=== PATIENT | female | born 1970 | race Caucasian/White ===

== ENCOUNTER 2016-09-01 02:03 | Emergency (ER) | payer OTHER ==
[~2016-09-01] VITALS: Ht 165.1 cm; Wt 73.0 kg
[2016-09-01 02:10] VITALS: Ht 165.1 cm; Wt 73.0 kg
--- NOTE | 2016-09-01 03:15 | ERD ---
ER Documentation Chief Complaint Date/Time DATE: 09/01/16 TIME: 03:15 Chief Complaint CWP since 1999 last night. takes clonazepam HPI Patient is a 46-year-old female who presents to the ED with left arm numbness and left leg numbness 2 days. She states that it came on suddenly. She states that she has anxiety and takes clonazepam for her symptoms. She is worried about what the numbness could be. She denies headache or dizziness. She denies cough, shortness of breath or difficulty breathing. She denies weakness or difficulty walking or speaking. She denies radiation of pain. Denies abdominal pain, nausea, vomiting or diarrhea. Patient states that she is anxious and has had a lot of stress. Denies recent travel or recent surgery. Denies leg pain or swelling. She states that the numbness comes and goes. Denies any triggering factor. ROS All systems reviewed and are negative except as per history of present illness. Medications Home Meds Active Scripts Naproxen* (Naprosyn*) 500 Mg Tablet, 500 MG PO BID Y for PAIN AND/OR INFLAMMATION, #30 TAB Prov:DAMEON JONES PA-C 09/01/16 Allergies Allergies: Coded Allergies: No Known Allergy (Unverified , 09/01/16) PMhx/Soc History of Surgery: No Hx Neurological Disorder: No Hx Respiratory Disorders: No Hx Cardiac Disorders: No Hx Alcohol Use: No Hx Substance Use: No Hx Tobacco Use: No Smoking Status: Never smoker FmHx Family History: No coronary disease, No diabetes, No other Physical Exam Vitals Vital Signs Date Time Temp Pulse Resp B/P Pulse Ox O2 Delivery O2 Flow Rate FiO2 09/01/16 02:10 99.5 114 20 117/77 98 Physical Exam GENERAL: Well-developed, well-nourished female. Appears in no acute distress. HEAD: Normocephalic, atraumatic. EYES: Pupils are equally reactive bilaterally. EOMs grossly intact. No conjunctival erythema. ENT: Moist mucous membranes. No uvula deviation. No kissing tonsils. No exudates. NECK: Supple. No lymphadenopathy or thyromegaly. No meningismus. negative kernig. negative brudinski. LUNG: Clear to auscultation bilaterally. No rhonchi, wheezing, rales or coarse breath sounds. HEART: Regular rate and rhythm. No murmurs, rubs or gallops. ABDOMEN: No scars, ecchymosis or rashes noted. Soft, nontender, and nondistended. Positive bowel sounds in all four quadrants. No rebound tenderness , no guarding. (-) McBurneys point tenderness. No CVA tenderness. BACK: No midline tenderness. Extremities: Equal pulses bilaterally. No peripheral clubbing, cyanosis or edema. No unilateral leg swelling. NEUROLOGIC: Alert and oriented. Moving all four extremities. 5/5 strength in all extremities. Normal speech. Steady gait. Cranial nerves II through XII intact. SKIN: Normal color. Warm and dry. No rashes or lesions. Capillary refill < 2 seconds Procedures/MDM ER COURSE: I kept the patient and/or family informed of laboratory and diagnostic imaging results throughout the emergency room course. EKG performed, read by Dr. Schwartz 116 bpm, sinus tachycardia normal axis, no acute ST segment changes, no T wave inversion [place] [id number] Radiology Main Line: [phone] DIAGNOSTIC IMAGING REPORT Patient: DEYSI HARVEY : 1970 Age: 46 Sex: F MR #: [id number] DOS: 09/01/16 0325 Ordering MD: DAMEON JONES PA-C Location: [facility] Room/Bed: PROCEDURE: CT Brain without contrast. CLINICAL INDICATION: Numbness, headache TECHNIQUE: A CT of the brain was performed utilizing axial imaging from the skull base through the vertex without IV contrast. Multiplanar reformatted images were made. Images were reviewed on a PACS workstation. The CTDIvol is 44.95 mGy and the DLP is 720.23 mGycm. One or more the following dose reduction techniques were utilized: Automated exposure control, adjustment of the mA/ or kV according to patient's size, or use of iterative reconstruction technique. COMPARISON: None FINDINGS: There is no intracranial hemorrhage, mass effect, or midline shift. No extra- axial fluid collection is seen. The ventricles and sulci are normal in size and configuration. The density of the brain is normal, and the river white matter differentiation appears well-preserved. The visualized paranasal sinuses and osseous structures are grossly unremarkable. IMPRESSION: 1. No evidence of acute intracranial pathology. 2. The brain is normal in appearance. RPTAT: HJES .Tereso Montalvo MD, MD Date Time Electronically viewed and signed by .Tereso Montalvo MD, MD on 09/01/2016 04:32 .S/ CC: DAMEON JONES PA-C [place] [id number] Radiology Main Line: [phone] DIAGNOSTIC IMAGING REPORT Patient: DEYSI HARVEY : 1970 Age: 46 Sex: F MR #: [id number] DOS: 09/01/16 0245 Ordering MD: DAMEON JONES PA-C Location: [facility] Room/Bed: PROCEDURE: XR Chest. CLINICAL INDICATION: Chest wall pain TECHNIQUE: Single frontal view of the chest was obtained COMPARISON: None FINDINGS: The heart and mediastinum are within normal limits. The lungs are clear. There is no pleural effusion or pneumothorax. ECG leads projected over the chest. IMPRESSION: No acute disease. RPTAT: HJES .Tereso Montalvo MD, MD Date Time Electronically viewed and signed by .Tereso Montalvo MD, MD on 09/01/2016 04:13 .S/ CC: DAMEON JONES PA-C MEDICAL DECISION MAKING: This is a 46-year-old female who presents with left arm numbness, left leg numbness and chest pressure 2 days. Vital signs were reviewed. Patient is afebrile. Patient is not hypoxic. Patient is not toxic or ill-appearing. Patient does not have any past medical conditions and does not have heart problems in the family. Her EKG is read by Dr. Schwartz show sinus tachycardia. Her x-ray and her CT scan is unremarkable. I consulted with Dr. Schwartz regarding this patient. Patient's symptoms are likely related to stress or nerve impingement in her neck. Low suspicion for ACS, PE, AAA, dissection, DVT. Low suspicion for pneumonia, PE, pneumothorax, ACS, epiglottitis, obstruction, TB, pertussis, meningitis, sepsis. Low suspicion for intracranial hemorrhage, meningitis, intracranial mass, concussion, temporal arteritis, stroke, elevated intracranial pressure, seizure. I reexamined patient after her laboratory studies were given to her and patient had relief and stated improvement in her symptoms. Patient was concerned but felt much better after her results were given to her. DISCHARGE: At this time, patient is stable for discharge and outpatient management with no new complaints during the ER course. Patient was sent home with Isa and a copy of her imaging results.. Patient will be discharged home with instructions to recheck for new or worsening symptoms such as fever, nausea, weakness, LOC and to follow up with primary care in the next 1-2 days. Patient was advised to return to the ER for any new or worsening symptoms. Plan was discussed and patient and/or family understands and agrees. Home instructions were given. Departure Diagnosis: Primary Impression: Numbness and tingling in left upper extremity Condition: Stable DAMEON JONES PA-C Sep 01, 2016 03:15
--- NOTE | 2016-09-01 04:14 | RADRPT ---
PROCEDURE: XR Chest. CLINICAL INDICATION: Chest wall pain TECHNIQUE: Single frontal view of the chest was obtained COMPARISON: None FINDINGS: The heart and mediastinum are within normal limits. The lungs are clear. There is no pleural effusion or pneumothorax. ECG leads projected over the chest. IMPRESSION: No acute disease. RPTAT: HJES .Tereso Montalvo MD, MD Date Time Electronically viewed and signed by .Tereso Montalvo MD, on 09/01/2016 04:13 .S/
--- NOTE | 2016-09-01 04:32 | RADRPT ---
PROCEDURE: CT Brain without contrast. CLINICAL INDICATION: Numbness, headache TECHNIQUE: A CT of the brain was performed utilizing axial imaging from the skull base through the vertex without IV contrast. Multiplanar reformatted images were made. Images were reviewed on a [employer] workstation. The CTDIvol is 44.95 mGy and the DLP is 720.23 mGycm. One or more the following dose reduction techniques were utilized: Automated exposure control, adjus tment of the mA/ or kV according to patient's size, or use of iterative reconstruction technique. COMPARISON: None FINDINGS: There is no intracranial hemorrhage, mass effect, or midline shift. No extra-axial fluid collection is seen. The ventricles and sulci are normal in size and configuration. The density of the brain is normal, and the river white matter differentiation appears well-preserved. The visualized paranasal sinuses and osseous structures are grossly unremarkable. IMPRESSION: 1. No evidence of acute intracranial pathology. 2. The brain is normal in appearance. RPTAT: HJES .Tereso Montalvo MD, MD Date Time Electronically viewed and signed by .Tereso Montalvo MD, on 09/01/2016 04:32 .S/
[2016-09-01] MEDS ORDERED: NAPR-260 PO (04:42)
== END 2016-09-01 04:48 | disposition home or self-care (01) ==
LOC: FTE 02:03
DX: R20.0 Anesthesia of skin (principal); R07.89 Other chest pain
CPT/HCPCS: 70450; 71010; 93005